=== PATIENT | female | born 1985 | race Two or more races ===

== ENCOUNTER 2017-02-27 10:44 | Emergency (ER) | payer OTHER ==
--- NOTE | ~2017-02-27 | CR72 ---
[facility] A Service of [facility] RADIOLOGY TEXT RESULTS PATIENT: CLAUS ALDANA LOCATION: [facility] : [birth year] UNIT #: [id number] AGE: [address]: Ivan Coles MD SEX: F ORDER DR: [id number] [facility] [address] [place], [place] [address] [id number] E MR#: [id number] Acc #: [id number] NAME: CLAUS ALDANA : 1985 SEX: F STUDY DATE/TIME: 02/27/2017 13:51 UNIT: [facility] ROOM: STUDY DESCRIPTION: CR Chest Single View Portable Attending Physician: Ivan Coles M.D. Ordering Physician: Sammy Christy M.D. Primary Care Phys[facility] REPORT This report is preliminary unless electronic signature is present EXAM Chest portable, 02/27/2017, 1351 hours. CLINICAL HISTORY 31-year-old woman with history of asthma complaining of chest pain, shortness of air beginning this morning. COMPARISON 08/12/2015 FINDINGS Single upright view of the chest demonstrates normal cardiac, mediastinal and hilar contours. Lung volumes are normal. The lungs are clear. Azygos fissure is noted as an anatomic variant. IMPRESSION Normal portable chest. Azygos fissure is noted as an anatomic variant. No evidence of hyperinflation or pneumonia. Dictated by... Niecy Lechuga M.D. THIS IS AN ELECTRONICALLY VERIFIED REPORT Niecy Lechuga M.D. at 02/28/2017 9:23 AM ADRIANA/jonathan TD: 02/27/2017 22:34 JOB #: [id number] MEDICAL IMAGING REPORT Page 1 of 1 COPY
--- NOTE | ~2017-02-27 | CT16 ---
[facility] A Service of [facility] RADIOLOGY TEXT RESULTS PATIENT: CLAUS ALDANA LOCATION: [facility] : 87 UNIT #: [id number] AGE: [address]: Ivan Coles MD SEX: F ORDER DR: [id number] [facility] [address] [place], [place] [address] [id number] E MR#: [id number] Acc #: [id number] NAME: CLAUS ALDANA : 1985 SEX: F STUDY DATE/TIME: 02/27/2017 16:05 UNIT: [facility] ROOM: STUDY DESCRIPTION: CT Angio Chest for PE Attending Physician: Ivan Coles M.D. Ordering Physician: Sammy Christy M.D. Primary Care Physician: [facility] REPORT This report is preliminary unless electronic signature is present EXAM CTA chest with contrast, PE protocol, 02/27/2017 HISTORY 31-year-old female with midsternal chest pain for 1 week. Elevated D-dimer. COMPARISON None. TECHNIQUE Helical scan performed through the chest following the timed bolus administration of IV contrast, per PE protocol. Coronal 3-D MIP reconstructions. Sagittal reformatted images. This CT exam was performed with one or more of the following radiation dose reduction techniques: Automatic exposure control, adjustment of mA and/or kV according to patient size, and iterative reconstruction. FINDINGS There is adequate opacification of the pulmonary arteries, with no filling defects demonstrated. Thoracic aorta normal in course and caliber, without dissection. Heart size normal. No pericardial effusion. No pleural effusions. No pneumothorax. No parenchymal infiltrates. Scanning through the upper abdomen demonstrates cholelithiasis. No acute bony abnormality. IMPRESSION 1. Negative for pulmonary emboli. 2. Negative for thoracic aortic aneurysm/dissection. 3. No acute pulmonary process. 4. Cholelithiasis. [facility] A Service of [facility] RADIOLOGY TEXT RESULTS PATIENT: CLAUS ALDANA LOCATION: [facility] : 89 UNIT #: [id number] AGE: [address]: Ivan Coles MD SEX: F ORDER DR: Dictated by... Abdoulaye Martin M.D. THIS IS AN ELECTRONICALLY VERIFIED REPORT Abdoulaye Martin M.D. at 02/28/2017 2:37 PM LYLY/edson TD: 02/28/2017 03:02 JOB #: [id number] MEDICAL IMAGING REPORT Page 1 of 1 COPY
--- NOTE | ~2017-02-27 | EKG ---
PATIENT: CLAUS ALDANA UNIT #: [id number] Ventricular Rate: 74 BPM Atrial Rate: 74 BPM P-R Interval: 180 ms QRS Duration: 84 ms Q-T Interval: 368 ms QTC Calculation(Bezet): 408 ms P [place]: 34 degrees Calculated R [place]: 52 degrees Calculated T [place]: 32 degrees Diagnosis Line: Normal sinus rhythm Diagnosis Line: Normal ECG Diagnosis Line: Diagnosis Line: Confirmed by OSIEL VAIL MD ([id number]) on Diagnosis Line: 02/28/2017 8:30:20 AM INTERPRETING MD: YARED KELLY
[~2017-02-27 10:44] MED LIST: FLEXERIL PO; FLEXERIL10 MG PO; NAPROXEN PO; PERCOCET5/325 PO
[2017-02-27 11:12] LABS: URINE SOURCE CLEAN CATCH
[2017-02-27 11:21] LABS: URINE APPEARANCE CLEAR; URINE BILIRUBIN NEG (NEG); URINE BLOOD NEG (NEG); URINE COLOR YELLOW; URINE GLUCOSE NEG (NEG); URINE KETONE NEG (NEG); URINE LEUKOCYTE ESTERASE NEG (NEG); URINE NITRATE NEG (NEG); URINE PH 6.5 (5-8); URINE PROTEIN NEG (NEG); URINE SPECIFIC GRAVITY 1.013 (1.003-1.035)
[2017-02-27 11:23] LABS: CULTURE INDICATED? NO
[2017-02-27 12:33] LABS: BASOPHIL# 0.1 X10e3 (0-0.3); BASOPHIL% 0.6 % (0-2.5); EOSINOPHIL# 0.2 X10e3 (0-0.7); EOSINOPHIL% 2.2 % (0.0-7.0); HEMATOCRIT 36.9 % (35.0-45.0); HEMOGLOBIN 12.5 gm/dL (12.0-16.0); LYMPHOCYTE# 1.9 X10e3 (1.0-3.5); LYMPHOCYTE% 20.2 % (17.0-45.0); MEAN CELL VOLUME 82.2 FL (83-96); MEAN CORPUSCULAR HEMOGLOBIN 27.9 PG (28-34); MEAN PLATELET VOLUME 8.1 FL (6.5-11.5); MONOCYTE# 0.5 X10e3 (0-1.0); MONOCYTE% 5.4 % (3.0-12.0); NEUTROPHIL# 6.6 X10e3 (1.5-7.1); NEUTROPHIL% 71.6 % (40-75); PLATELET COUNT 233 X10e3 (140-420); RED BLOOD COUNT 4.49 X10e (3.90-5.30); RED CELL DISTRIBUTION WIDTH 13.4 % (11.0-15.5); WHITE BLOOD COUNT 9.2 X10e3 (4.0-10.5)
[2017-02-27 12:38] LABS: DIFF IND NO
[2017-02-27 13:07] LABS: ALBUMIN SERUM 3.6 g/dL (3.5-5.0); ALKALINE PHOSPHATASE 112 U/L (32-92); ALT (SGPT) 15 U/L (10-40); AST (SGOT) 17 U/L (10-42); BILIRUBIN,TOTAL 0.5 mg/dL (0.2-2.0); BLOOD UREA NITROGEN 12 mg/dL (9-23); CALCIUM SERUM 9.2 mg/dL (8.4-10.2); CARBON DIOXIDE 24 mmol/L (22-31); CHLORIDE 107 mmol/L (100-111); CREATININE SERUM 0.5 mg/dL (0.6-1.4); GLOM FILT RATE Estimated 130.8 mL/min (>60); GLUCOSE FASTING 99 mg/dL (70-110); LIPASE 22 U/L (22-51); PROTEIN TOTAL SERUM 8.2 g/dL (6.0-8.3); SODIUM 137 mmol/L (135-145)
[2017-02-27 13:09] LABS: BILIRUBIN, DIRECT <0.1 mg/dL (0.0-0.2); BILIRUBIN,INDIRECT 0.4 mg/dL (0.0-0.9)
[2017-02-27 14:14] LABS: POC - CKMB <1.0 ng/mL (0.0-7.9); POC - TROPONIN <0.05 ng/mL (<=0.05)
[2017-04-03] MEDS ORDERED: HYDROCODON-ACE1 EAC5 PO (09:34)
[2017-04-03] MEDS ORDERED: PANTOPRAZOLE SO20 MG PO (09:36)
== END 2017-02-27 17:30 | disposition home or self-care (01) ==
LOC: CED 10:44
PROVIDERS: Emergency Medicine
DX: K80.70 Calculus of gallbladder and bile duct without cholecystitis without obstruction (principal); R07.89 Other chest pain
CPT/HCPCS: 36415; 71010; 71275; 80048; 80076; 81003; 82553; 83690; 84484; 84703; 85025; 85379; 93005; 99285; Q9967

== ENCOUNTER → 2017-04-03 | Day surgery (SDC) | payer OTHER ==
[~2017-04-03] MED LIST changes: +HYDROCODON-ACE1 EAC5 PO; +PANTOPRAZOLE SO20 MG PO
--- NOTE | ~2017-04-03 | OR ---
Unit #: [id number] #: [id number] Patient: CLAUS ALDANA [id number] [facility] [address] [place], [place] [address] [id number] O MR#: [id number] NAME: CLASU ALDANA ROOM: Date of Procedure: 04/03/2017 Admission Date: 04/03/2017 Surgeon: Cabrera Mcgarry M.D. : 1985 Attending Physician: Cabrera Mcgarry M.D. Primary Care Physician: [facility] OPERATIVE REPORT PREOPERATIVE DIAGNOSIS Chronic cholecystitis with cholelithiasis. POSTOPERATIVE DIAGNOSIS Chronic cholecystitis with cholelithiasis. PROCEDURE PERFORMED Laparoscopic cholecystectomy. ASSISTANT Jerrod Reyes M.D. ANESTHESIA General endotracheal anesthesia. ESTIMATED BLOOD LOSS Less than 10 mL. INDICATIONS FOR PROCEDURE A 31-year-old [place] female, who has been having postprandial nausea and right upper quadrant pain. Ultrasound revealed cholelithiasis with normal biliary ductal system. DESCRIPTION OF PROCEDURE The patient was admitted to [facility], positively identified, and transported to the operating room, and after induction of general endotracheal anesthesia, she received IV antibiotics per SCIP protocol and was prepped and draped in usual sterile fashion. SCDs were ordered. A 5-mm supraumbilical incision was made. Veress needle was placed. Pneumoperitoneum was created. Then, a 5-mm trocar was placed. Laparoscope was introduced into the peritoneal cavity. Under direct vision, the epigastric and lateral ports were placed. Gallbladder was grasped and elevated. The infundibulum was identified and retracted laterally and the triangle of Calot was dissected out clearly identifying the cystic duct, gallbladder, and cystic duct-common duct junction. A single clip was placed in the cystic duct centered to gallbladder and then three clips were placed distally and the cystic duct sharply divided. Posteriorly, the cystic artery doubly clipped proximally and distally and divided. I then dissected the gallbladder out of liver bed using cautery dissection and once it was freed up from its hepatic attachments, it was brought out through the epigastric port. There was no spillage of stones. I checked the liver bed, there was excellent hemostasis. The clips were Unit #: [id number] #: [id number] Patient: CLAUS ALDANA well positioned. The epigastric fascial defect was closed with the neoClose device and the closure was airtight. I then reduced the pneumoperitoneum as I removed the laparoscope and trocars. 0.5% Marcaine with epinephrine was infiltrated into each trocar site. The skin was closed with 4-0 Monocryl subcuticular closure and Dermabond skin adhesive. The patient tolerated the procedure well and was transported to recovery in stable condition. Findings and postoperative instructions were discussed with her family. Dictated by... Atilio Huffman/laina TD: 04/03/2017 13:37 JOB #: [id number] OPERATIVE REPORT Page 1 of 1 X Cabrera Mcgarry MD X PROCEDURE OPERATIVE NOTE
[2017-04-03 09:30] LABS: HEMATOCRIT 36.3 % (35.0-45.0); HEMOGLOBIN 12.6 gm/dL (12.0-16.0); MEAN CELL VOLUME 82.4 FL (83-96); MEAN CORPUSCULAR HEMOGLOBIN 28.6 PG (28-34); MEAN CORPUSCULAR HGB CONC 34.7 g/dL (30-36); MEAN PLATELET VOLUME 8.4 FL (6.5-11.5); RED BLOOD COUNT 4.41 X10e (3.90-5.30); RED CELL DISTRIBUTION WIDTH 13.6 % (11.0-15.5); WHITE BLOOD COUNT 9.8 X10e3 (4.0-10.5)
[2017-04-03 09:57] LABS: ALBUMIN SERUM 3.7 g/dL (3.5-5.0); BILIRUBIN,TOTAL 0.8 mg/dL (0.2-2.0); BUN/CREATININE RATIO 13.33; CALCIUM SERUM 8.4 mg/dL (8.4-10.2); CREATININE SERUM 0.6 mg/dL (0.6-1.4); GLOM FILT RATE Estimated 123.2 mL/min (>60); POTASSIUM 4.3 mmol/L (3.5-5.1); PROTEIN TOTAL SERUM 8.3 g/dL (6.0-8.3)
== END | disposition home or self-care (01) ==
LOC: CSUR 08:37
PROVIDERS: Specialist
DX: K80.10 Calculus of gallbladder with chronic cholecystitis without obstruction (principal); K21.9 Gastro-esophageal reflux disease without esophagitis; Z79.891 Long term (current) use of opiate analgesic; Z79.899 Other long term (current) drug therapy
CPT/HCPCS: 80053; 84703; 85027; 88304; J0690; J2250; J2270; J3010